=== PATIENT | male | born 1975 | race Hispanic/Latino ===

== ENCOUNTER 2018-07-09 15:10 | Emergency (ER) | payer OTHER, MEDICARE ==
[2018-07-09 15:31] LABS: APPEARANCE,URINE Clear (CLEAR); BILIRUBIN,URINE Negative (NEGATIVE); COLOR,URINE Yellow (YELLOW); GLUCOSE, URINE (UA) >=1000 mg/dL (NEGATIVE); KETONES,URINE Negative (NEGATIVE); LEUKOCYTE ESTERASE ,URINE Negative (NEGATIVE); NITRATE,URINE Negative (NEGATIVE); OCCULT BLOOD,URINE Moderate (NEGATIVE); PROTEIN,URINE 300 mg/dL (NEGATIVE); UROBILINOGEN,URINE 0.2 mg/dL (0.2-1.0)
[2018-07-09 15:39] LABS: BACTERIA,URINE None Seen /HPF (None Seen); SQUAMOUS EPITHELIAL CELL,UR None Seen /HPF (0-2); WBC,URINE None Seen /HPF (0-1)
[2018-07-09 15:39] LABS: BASOPHILS % (AUTO) 0.4 % (0.0-5.0); EOSINOPHILS % (AUTO) 0.8 % (0.0-8.0); HEMATOCRIT 34.6 % (42-54); LYMPHOCYTES % (AUTO) 22.9 % (21.0-51.0); MEAN CORPUSCULAR HEMOGLOBIN 31.9 pg (27.0-33.0); MEAN CORPUSCULAR VOLUME 93.7 fL (79-99); MONOCYTES % (AUTO) 6.6 % (3.0-13.0); NEUTROPHILS % (AUTO) 69.3 % (40.0-77.0); NUCLEATED RED BLOOD CELLS 0.1 % (0.0-0.19); PLATELET COUNT (AUTO) 214 K/uL (130-400); WHITE BLOOD COUNT (AUTO) 6.9 K/uL (4.8-10.8)
[2018-07-09 15:49] LABS: CREATININE 1.3 mg/dL (0.5-1.5); POTASSIUM 4.3 mmol/L (3.5-5.1)
[2018-07-09 15:50] LABS: INR 0.92 (0.85-1.15); PARTIAL THROMBOPLASTIN TIME 27.3 SEC (26.3-35.5); PROTHROMBIN TIME 9.7 SEC (9.6-11.6)
[2018-07-09 15:54] LABS: ALBUMIN 2.8 g/dL (3.5-5.0); BILIRUBIN,TOTAL 0.3 mg/dL (0.2-1.0); TOTAL PROTEIN, SERUM 6.3 g/dL (6.0-8.3)
[2018-07-09] MEDS ORDERED: CLONIDINE HCL 0.1 MG TABLET ONE (16:48)
== END 2018-07-09 17:36 | disposition left against medical advice (07) ==
LOC: EDH 15:10
DX: R20.2 Paresthesia of skin (principal); R53.1 Weakness; R51 Headache; E11.65 Type 2 diabetes mellitus with hyperglycemia; I10 Essential (primary) hypertension; F20.9 Schizophrenia, unspecified; Z79.4 Long term (current) use of insulin
CPT/HCPCS: 36415; 70450; 80053; 81001; 82550; 84484; 85025; 85610; 85730; 93005; 99291

== ENCOUNTER → 2018-09-07 | Outpatient (CLI) | payer SELFPAY | END | disposition home or self-care (01) | LOC: OIH 11:27 | PROVIDERS: ATTEND Internal Medicine Cardiovascular Disease | DX: Z13.6 Encounter for screening for cardiovascular disorders (principal) | CPT/HCPCS: 75571 ==

== ENCOUNTER → 2018-09-13 | Outpatient (CLI) | payer OTHER, MEDICARE | END | disposition home or self-care (01) | LOC: SHCH 11:08 | PROVIDERS: ATTEND Internal Medicine Cardiovascular Disease | DX: I11.9 Hypertensive heart disease without heart failure (principal) | CPT/HCPCS: 93306 ==

== ENCOUNTER → 2018-10-20 | Outpatient (CLI) | payer OTHER, MEDICARE ==
[~2018-10-20] VITALS: Ht 165.1 cm; Wt 102.5 kg
[~2018-10-20] MED LIST: REGADENOSON 0.4 MG/5 ML PF SYG IVP SCH
== END | disposition home or self-care (01) ==
LOC: SHCH 08:21
PROVIDERS: ATTEND Internal Medicine Cardiovascular Disease
DX: I25.89 Other forms of chronic ischemic heart disease (principal); I25.10 Atherosclerotic heart disease of native coronary artery without angina pectoris
CPT/HCPCS: 78452; 93017; 96374; A9500 ×2; J2785

== ENCOUNTER 2019-06-27 13:46 | Emergency (ER) | payer OTHER, MEDICARE ==
[~2019-06-27 13:46] MED LIST changes: +ASPI-891 PO; +ATOR40TA69 PO; +HUM100IN SQ; +METO25 PO; -REGADENOSON 0.4 MG/5 ML PF SYG IVP SCH
[2019-06-27] MEDS ORDERED: ACETAMINOPHEN EXTRA STRENGTH 500 MG TABLET ONE (15:39)
== END 2019-06-27 16:00 | disposition home or self-care (01) ==
LOC: EDH 13:46
DX: H60.8X1 Other otitis externa, right ear (principal); E11.9 Type 2 diabetes mellitus without complications; I10 Essential (primary) hypertension

== ENCOUNTER 2019-08-14 08:11 | Emergency (ER) | payer OTHER, MEDICARE ==
[2019-08-14] MEDS ORDERED: ZIPRASIDONE MESYLATE 20 MG/VIAL IM ONE (08:34)
== END 2019-08-14 09:17 | disposition home or self-care (01) ==
LOC: EDH 08:11
DX: G47.00 Insomnia, unspecified (principal); E11.9 Type 2 diabetes mellitus without complications; I10 Essential (primary) hypertension
CPT/HCPCS: 96372; 99283; J3486

== ENCOUNTER 2019-08-29 07:26 | Emergency (ER) | payer OTHER, MEDICARE | END 2019-08-29 08:27 | disposition home or self-care (01) | LOC: EDH 07:26 | DX: L02.211 Cutaneous abscess of abdominal wall (principal); E11.9 Type 2 diabetes mellitus without complications; I10 Essential (primary) hypertension; F20.9 Schizophrenia, unspecified ==

== ENCOUNTER 2019-09-02 16:55 | Emergency (ER) | payer OTHER, MEDICARE ==
[2019-09-02 17:41] LABS: BASOPHILS % (AUTO) 0.3 % (0.0-5.0); EOSINOPHILS % (AUTO) 1.5 % (0.0-8.0); HEMATOCRIT 47.9 % (42-54); LYMPHOCYTES % (AUTO) 14.1 % (21.0-51.0); MEAN CORPUSCULAR HEMOGLOBIN 28.2 pg (27.0-33.0); MEAN CORPUSCULAR HGB CONC 33.6 g/dL (32.0-36.0); MEAN CORPUSCULAR VOLUME 83.9 fL (79-99); MONOCYTES % (AUTO) 7.3 % (3.0-13.0); NEUTROPHILS % (AUTO) 76.2 % (40.0-77.0); PLATELET COUNT (AUTO) 217 K/uL (130-400); RED BLOOD CELL COUNT(AUTO) 5.71 MIL/uL (4.50-6.20); RED CELL DISTRIBUTION WIDTH 12.7 % (11.0-15.5); WHITE BLOOD COUNT (AUTO) 11.6 K/uL (4.8-10.8)
[2019-09-02] MEDS ORDERED: TETANUS/DIPHTHERIA TOXOID [ADULT] 0.5 ML VIAL IM ONE (18:05)
[2019-09-02] MEDS ORDERED: SODIUM CHLORIDE 0.9% 1000ML 1,000 ML IV ONE (18:05)
== END 2019-09-02 18:57 | disposition home or self-care (01) ==
LOC: EDH 16:55
DX: S80.01XA Contusion of right knee, initial encounter (principal); E11.9 Type 2 diabetes mellitus without complications; I10 Essential (primary) hypertension; F20.9 Schizophrenia, unspecified; X58.XXXA Exposure to other specified factors, initial encounter; Y93.89 Activity, other specified; Y92.89 Other specified places as the place of occurrence of the external cause; Y99.8 Other external cause status
CPT/HCPCS: 36415; 80048; 82948; 85025; 90471; 90714; 93005; 99284; J7030

== ENCOUNTER 2019-09-26 06:56 | Emergency (ER) | payer OTHER, MEDICARE | END 2019-09-26 08:20 | disposition home or self-care (01) | LOC: EDH 06:56 | DX: S01.311A Laceration without foreign body of right ear, initial encounter (principal); I10 Essential (primary) hypertension; E11.9 Type 2 diabetes mellitus without complications; F20.9 Schizophrenia, unspecified; W45.8XXA Other foreign body or object entering through skin, initial encounter; Y93.89 Activity, other specified; Y92.488 Other paved roadways as the place of occurrence of the external cause; Y99.8 Other external cause status | CPT/HCPCS: 99282 ==

== ENCOUNTER 2019-12-05 09:25 | Emergency (ER) | payer OTHER, MEDICARE ==
[2019-12-05 09:59] LABS: BASOPHILS % (AUTO) 0.2 % (0.0-5.0); EOSINOPHILS % (AUTO) 1.2 % (0.0-8.0); HEMATOCRIT 33.9 % (42-54); LYMPHOCYTES % (AUTO) 28.8 % (21.0-51.0); MEAN CORPUSCULAR HGB CONC 32.4 g/dL (32.0-36.0); MEAN CORPUSCULAR VOLUME 95.5 fL (79-99); MONOCYTES % (AUTO) 8.3 % (3.0-13.0); NEUTROPHILS % (AUTO) 61.2 % (40.0-77.0); PLATELET COUNT (AUTO) 234 K/uL (130-400); RED BLOOD CELL COUNT(AUTO) 3.55 MIL/uL (4.50-6.20); RED CELL DISTRIBUTION WIDTH 14.8 % (11.0-15.5); WHITE BLOOD COUNT (AUTO) 8.9 K/uL (4.8-10.8)
[2019-12-05 10:03] LABS: APPEARANCE,URINE CLEAR (CLEAR); BILIRUBIN,URINE NEGATIVE (NEGATIVE); COLOR,URINE YELLOW (YELLOW); GLUCOSE, URINE (UA) NEGATIVE (NEGATIVE); KETONES,URINE NEGATIVE (NEGATIVE); LEUKOCYTE ESTERASE ,URINE NEGATIVE (NEGATIVE); NITRATE,URINE NEGATIVE (NEGATIVE); OCCULT BLOOD,URINE SMALL (NEGATIVE); PH,URINE 5.5 (5.0-8.0); PROTEIN,URINE >=300 mg/dL (NEGATIVE); UROBILINOGEN,URINE 0.2 mg/dL (0.2-1.0)
[2019-12-05 10:09] LABS: INR 0.91 (0.85-1.15); PARTIAL THROMBOPLASTIN TIME 29.3 SEC (26.3-35.5); PROTHROMBIN TIME 9.9 SEC (9.6-11.6)
[2019-12-05 10:10] LABS: BACTERIA,URINE Rare /HPF (None Seen); RBC,URINE 0-1 /HPF (0-1); SQUAMOUS EPITHELIAL CELL,UR Rare /HPF (0-2); WBC,URINE 0-1 /HPF (0-1)
[2019-12-05 10:13] LABS: ALBUMIN 3.2 g/dL (3.5-5.0); BILIRUBIN,DIRECT 0.1 mg/dL (0.0-0.3); BILIRUBIN,TOTAL 0.3 mg/dL (0.2-1.0); CREATININE 1.5 mg/dL (0.5-1.5); POTASSIUM 4.2 mmol/L (3.5-5.1)
== END 2019-12-05 13:42 | disposition home or self-care (01) ==
LOC: EDH 09:25
DX: R33.9 Retention of urine, unspecified (principal); K59.00 Constipation, unspecified; E11.9 Type 2 diabetes mellitus without complications; I10 Essential (primary) hypertension; F20.9 Schizophrenia, unspecified; Z95.1 Presence of aortocoronary bypass graft; Z87.891 Personal history of nicotine dependence
CPT/HCPCS: 36415; 51702; 74176; 80048; 80076; 81001; 82550; 85025; 85610; 85730

== ENCOUNTER 2019-12-07 13:43 | Emergency (ER) | payer OTHER, MEDICARE | END 2019-12-07 14:22 | disposition home or self-care (01) | LOC: EDH 13:43 | DX: Z46.6 Encounter for fitting and adjustment of urinary device (principal); E11.9 Type 2 diabetes mellitus without complications; I10 Essential (primary) hypertension; F20.9 Schizophrenia, unspecified | CPT/HCPCS: 99281 ==

== ENCOUNTER 2020-02-02 12:51 | Emergency (ER) | payer OTHER, MEDICARE ==
[~2020-02-02] VITALS: Ht 165.1 cm; Wt 93.0 kg
[2020-02-02] MEDS ORDERED: DOCUSATE SODIUM 100 MG CAP PO ONE ×2 (13:11→13:15)
[2020-02-02] MEDS ORDERED: DOCUSATE NA 100MG/10ML UDCUP PO SCH (14:00)
== END 2020-02-02 14:15 | disposition home or self-care (01) ==
LOC: EDH 12:51
DX: H61.21 Impacted cerumen, right ear (principal); H60.91 Unspecified otitis externa, right ear; R03.0 Elevated blood-pressure reading, without diagnosis of hypertension; E11.9 Type 2 diabetes mellitus without complications; I10 Essential (primary) hypertension; F20.9 Schizophrenia, unspecified; Z95.1 Presence of aortocoronary bypass graft
CPT/HCPCS: 69209

== ENCOUNTER 2021-10-08 15:44 | Observation (INO) | payer OTHER, MEDICARE ==
[~2021-10-08] VITALS: Ht 165.1 cm; Wt 98.6 kg
[2021-10-08 16:42] LABS: BASOPHILS % (AUTO) 0.2 % (0.0-5.0); EOSINOPHILS % (AUTO) 0.2 % (0.0-8.0); HEMATOCRIT 42.5 % (42-54); LYMPHOCYTES % (AUTO) 13.4 % (21.0-51.0); MEAN CORPUSCULAR HEMOGLOBIN 30.6 pg (27.0-33.0); MEAN CORPUSCULAR HGB CONC 32.2 g/dL (32.0-36.0); MEAN CORPUSCULAR VOLUME 94.9 fL (79-99); MONOCYTES % (AUTO) 8.5 % (3.0-13.0); NEUTROPHILS % (AUTO) 77.4 % (40.0-77.0); PLATELET COUNT (AUTO) 246 K/uL (130-400); RED BLOOD CELL COUNT(AUTO) 4.48 MIL/uL (4.50-6.20); RED CELL DISTRIBUTION WIDTH 13.9 % (11.0-15.5); WHITE BLOOD COUNT (AUTO) 12.9 K/uL (4.8-10.8)
[2021-10-08 16:56] LABS: CREATININE 2.6 mg/dL (0.5-1.5); POTASSIUM 4.8 mmol/L (3.5-5.1)
[2021-10-08 17:01] LABS: ALBUMIN 3.3 g/dL (3.5-5.0); TOTAL PROTEIN, SERUM 7.5 g/dL (6.0-8.3)
[2021-10-08 18:47] LABS: APPEARANCE,URINE Cloudy (CLEAR); BILIRUBIN,URINE Negative (NEGATIVE); COLOR,URINE Yellow (YELLOW); GLUCOSE, URINE (UA) TRACE mg/dL (NEGATIVE); KETONES,URINE Trace mg/dL (NEGATIVE); LEUKOCYTE ESTERASE ,URINE Negative (NEGATIVE); NITRATE,URINE Negative (NEGATIVE); OCCULT BLOOD,URINE Negative (NEGATIVE); PROTEIN,URINE 300 mg/dL (NEGATIVE)
[2021-10-08 18:55] LABS: BACTERIA,URINE Few /HPF (None Seen); MUCUS,URINE Rare LPF (None Seen); RBC,URINE 0-1 /HPF (0-1); SQUAMOUS EPITHELIAL CELL,UR Few /HPF (0-2); WBC,URINE 0-1 /HPF (0-1)
[2021-10-08] MEDS ORDERED: 0.9%NACL 1000ML 1,000 ML IV ONE ×2 (19:30→21:30)
[2021-10-08] MEDS ORDERED: DICYCLOMINE 20MG (10MG/ML) AMP IM STA (19:34)
[2021-10-08] MEDS ORDERED: FAMOTIDINE 20MG VIAL IV ONE (20:00)
[2021-10-08] MEDS ORDERED: ONDANSETRON 4MG INJ IVP ONE (20:00)
[2021-10-08] MEDS ORDERED: ACETAMINOPHEN 500 MG TABLET PO ONE (22:00)
[2021-10-08] MEDS ORDERED: ONDANSETRON ODT 4MG TAB SL PRN (23:30)
[2021-10-08] MEDS ORDERED: ACETAMINOPHEN 325 MG TAB PO PRN (23:30)
[2021-10-08] MEDS: 0.9%NACL 1000ML 1,000 ML IV SCH (23:49)
[2021-10-09 00:55] VITALS: BP 132/65
[2021-10-09 04:26] VITALS: BP 132/71
[2021-10-09] MEDS: INSULIN HUMULIN R 100 UNIT/ML 3ML SQ SCH ×2 (06:05→11:34)
[2021-10-09 06:10] LABS: BASOPHILS % (AUTO) 0.1 % (0.0-5.0); EOSINOPHILS % (AUTO) 1.5 % (0.0-8.0); HEMATOCRIT 35.3 % (42-54); LYMPHOCYTES % (AUTO) 30.4 % (21.0-51.0); MEAN CORPUSCULAR HEMOGLOBIN 31.2 pg (27.0-33.0); MEAN CORPUSCULAR HGB CONC 31.7 g/dL (32.0-36.0); MEAN CORPUSCULAR VOLUME 98.3 fL (79-99); NEUTROPHILS % (AUTO) 59.7 % (40.0-77.0); PLATELET COUNT (AUTO) 223 K/uL (130-400); RED BLOOD CELL COUNT(AUTO) 3.59 MIL/uL (4.50-6.20); RED CELL DISTRIBUTION WIDTH 14.6 % (11.0-15.5); WHITE BLOOD COUNT (AUTO) 8.9 K/uL (4.8-10.8)
[2021-10-09 06:22] LABS: CREATININE 2.1 mg/dL (0.5-1.5); POTASSIUM 4.7 mmol/L (3.5-5.1)
[2021-10-09 06:24] LABS: HEMOGLOBIN A1C 12.7 % (4.0-6.0)
[2021-10-09] MEDS: 0.9%NACL 1000ML 1,000 ML IV SCH (08:38)
[2021-10-09 09:08] VITALS: BP 159/75
[2021-10-09] MEDS ORDERED: LISI20TA24 PO (11:26)
[2021-10-09] MEDS ORDERED: INSULIN HUMULIN R 100 UNIT/ML 3ML SQ SCH (11:30)
[2021-10-09] MEDS ORDERED: GLUCAGON 1MG KIT 1 MG ML IM PRN (11:30)
[2021-10-09] MEDS ORDERED: DEXTROSE 50%-WATER 50 ML DISP.SYRIN IV PRN (11:30)
[2021-10-09] MEDS ORDERED: LISINOPRIL 20 MG TABLET ONE (11:31)
[2021-10-09 11:44] VITALS: BP 189/65
[2021-10-09 14:09] VITALS: BP 179/93
[2021-10-09 16:20] VITALS: BP 187/90
[2021-10-09] MEDS ORDERED: LISINOPRIL 20 MG TABLET PO SCH (21:00)
[2021-10-09] MEDS ORDERED: ATORVASTATIN 40 MG TABLET PO SCH (21:00)
[2021-10-10] MEDS ORDERED: ASPIRIN 325MG EC TAB PO SCH (09:00)
== END 2021-10-09 17:10 | disposition home or self-care (01) ==
LOC: EDH 15:44 → INTOOBSV 23:16 → EDHIP 23:16 → 4AH 10-09 00:30
PROVIDERS: ADMIT Internal Medicine Infectious Disease; ATTEND Internal Medicine Infectious Disease
DX: A09 Infectious gastroenteritis and colitis, unspecified (principal); Z20.822 Contact with and (suspected) exposure to COVID-19; N17.9 Acute kidney failure, unspecified; E86.0 Dehydration; E11.649 Type 2 diabetes mellitus with hypoglycemia without coma; D72.829 Elevated white blood cell count, unspecified; H54.7 Unspecified visual loss; E66.9 Obesity, unspecified; I25.10 Atherosclerotic heart disease of native coronary artery without angina pectoris; E78.5 Hyperlipidemia, unspecified; E78.00 Pure hypercholesterolemia, unspecified; I10 Essential (primary) hypertension; Z91.19 Patient's noncompliance with other medical treatment and regimen; Z95.1 Presence of aortocoronary bypass graft; Z79.899 Other long term (current) drug therapy
CPT/HCPCS: 99285; 74176; 96374; 96361 ×2; 87635; 96375; 84484; 80053; 85025 ×2; 87804 ×2; 82948 ×6; 82010; 81001; 36415 ×2; 93005; 96372; 83036; 83735; 80048; C9803; J3490; J7030 ×3; J2405; J0500; J1815; G0378